=== PATIENT | male | born 1980 | race Caucasian/White ===

== ENCOUNTER 2016-11-22 14:22 | Emergency (ER) | payer SELFPAY ==
[2016-11-22 14:38] VITALS: BMI 28.0
[2016-11-22 14:40] VITALS: TEMP 97.9
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
[2016-11-22] MEDS ORDERED: HYDROmorphone 1 MG INJECTION IM ONE (15:01)
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
[2016-11-22 16:41] VITALS: BP 142/81; PULSE 83
== END 2016-11-22 15:33 | disposition home or self-care (01) ==
LOC: ED 14:22
DX: S42.022A Displaced fracture of shaft of left clavicle, initial encounter for closed fracture (principal); V86.59XA Driver of other special all-terrain or other off-road motor vehicle injured in nontraffic accident, initial encounter
CPT/HCPCS: 73030; 96372; 99283; J1170